=== PATIENT | female | born 1930 | race Caucasian/White ===

== ENCOUNTER 2019-01-02 19:27 | Inpatient (IN) ==
[2019-01-02] MEDS ORDERED: IOPAMIDOL 100 ML BOTTLE IV ONE (19:28)
--- NOTE | 2019-01-02 20:06 | Emergency Department Note ---
Fever HPI - General Chief Complaint: Fever Stated Complaint: FEVER Time Seen by Provider: 01/02/19 19:33 Source: patient Mode of arrival: ambulatory Limitations: no limitations - History of Present Illness HPI Narrative: 88-year-old female presents with weeklong history of generally feeling poor. She does have a nonproductive cough. Had a sore throat for a few days but that has subsided. No ear pain. She is had a fever for at least a few days. She lives at [facility] but did not seek medical attention until today. She presented to minor care and he started to do a work-up that her daughter who is a nurse called and wanted her sent over to the ER for further evaluation due to concern for her age and fever. At that point she was brought over to us in the ER. She did have a chest x-ray that was done in minor care. Chest x-ray is negative for any infiltrates or other findings. Patient is somewhat confused. Family with her states confusion is her baseline however she is slightly more confused than normal possibly. Patient denies any chest pain or abdominal pain. No nausea, vomiting, or diarrhea. She do has had decreased appetite for the last 24 to 48 hours. Her only complaint is cough, fever, and general body aches. Her temp was 102.8 in minor care but they did give her 400 mg of ibuprofen prior to arrival here. - Related Data Home Medications Medication Instructions Recorded Confirmed acetaminophen 500 mg capsule 1,000 mg PO Q6H PRN 10/06/18 01/02/19 aspirin 81 mg tablet,delayed 81 mg PO QDAY 10/06/18 01/02/19 release cholecalciferol (vitamin D3) 2,000 2,000 unit PO QDAY 10/06/18 01/02/19 unit capsule lisinopril 10 1 tab PO QAM tab 10/06/18 01/02/19 mg-hydrochlorothiazide 12.5 mg tablet quetiapine 25 mg tablet 12.5 mg PO QHS tab 10/06/18 01/02/19 risperidone 0.25 mg tablet 0.25 mg PO .COMPLEX 10/06/18 01/02/19 sertraline 50 mg tablet 50 mg PO QDAY 10/06/18 01/02/19 vitamin E 200 unit capsule 400 unit PO QDAY 10/06/18 01/02/19 Allergies Allergy/AdvReac Type Severity Reaction Status Date / Time nitrofurantoin AdvReac Unknown Unknown Verified 01/02/19 19:47 [From Macrobid] Penicillins AdvReac Unknown Unknown Verified 01/02/19 19:29 Tetanus Vaccines and Toxoid AdvReac Unknown Unknown Verified 01/02/19 19:47 Review of Systems All systems ED: reviewed and negative except as stated. Fever PMH - Past Medical History [facility] Narrative: Medical History (Last Reviewed 12/13/18 @ 13:32 by LANDRY Hawley) Urinary incontinence (Chronic) Dementia (Chronic) HTN (hypertension) (Chronic) Memory loss (Chronic) Restless legs (Chronic) Stress reaction with psychomotor agitation (Chronic) Surgical history ED: Reports: non-contributory - Social History smoking status: Never smoker Alcohol use: Reports: None Drug use: Reports: none Physical Exam Limitations: no limitations General appearance: alert, other (Alert and oriented x3 however she is confused at times.) Head: atraumatic, normocephalic, normal inspection Eye: Present: normal appearance. Absent: conjunctival injection ENT: Present: normal exam, normal oropharynx, mucous membranes moist, TM's normal bilaterally, normal external ear exam Neck: Present: normal inspection, trachea midline. Absent: tenderness, lymphadenopathy Chest: Present: symmetric chest wall rise Respiratory: Present: other (Diminished breath sounds in the bases bilaterally otherwise clear throughout). Absent: respiratory distress, rales/crackles, wheezes, accessory muscle use Cardiovascular: Present: regular rate, normal heart sounds Abdominal: Present: soft, normal bowel sounds. Absent: distention, tenderness, guarding, mass Extremities: Present: normal inspection Neurological: Present: alert, oriented X3 (Oriented to person, place and time at this point however she is easily confused and poor short-term memory which is baseline) Psychiatric: Present: normal affect, normal mood Skin: Present: warm, diaphoretic (Slightly diaphoretic on arrival), intact, normal color Course Course Narrative: Chest x-ray is negative and urine is negative. At this point we do not have a source of infection. I have discussed this case with supervising physician Dr. walters. Patient lives at [facility] and there has been several influenza as it sounds like with known influenza exposure. However her symptoms did start about a week ago and so we are most likely outside the window where her rapid influenza with test positive. She does have classic flulike symptoms with body aches and fever and mild nonproductive cough. For this reason and due to the fact that her vital signs are stable, she is afebrile after the ibuprofen and now with a heart rate of 76 and blood pressures have been normal throughout her stay, we have chose to hold off on antibiotics will be further look for source of infection. We are waiting on CT abdomen pelvis and chest results. White count is mildly elevated at 13. Reevaluation of the patient just now, patient has absolutely no complaints. Her body aches are gone after the ibuprofen. States she is feeling well and would like to go home. Discussed with patient we are waiting for CT results. At 2230, Dr. walters assumes care due to shift change. We are still awaiting CT results from [facility]. Patient's vital signs remained stable and she is resting comfortably. Vital Signs Temperature 100.8 F H 01/02/19 19:27 Pulse Rate 88 01/02/19 19:27 Respiratory Rate 20 01/02/19 19:27 Blood Pressure 85/62 01/02/19 19:27 Pulse Oximetry (%) 96 01/02/19 19:27 Temperature 97.8 F 01/03/19 08:01 Pulse Rate 80 01/03/19 09:46 Respiratory Rate 26 H 01/03/19 09:46 Blood Pressure 111/59 01/03/19 09:46 Pulse Oximetry (%) 100 01/03/19 09:46 Fever - Lab Data Result diagrams: 01/03/19 04:10 01/03/19 04:10 Lab Results 01/02/19 01/02/19 01/02/19 Range/Units 19:47 19:47 19:48 WBC 13.2 H (4.5-11.0) K/mcL RBC 3.82 L (4.00-5.20) M/mcL Hgb 11.5 L (12.0-15.0) g/dL Hct 34.3 L (36.0-48.0) % MCV 89.6 (80.0-100.0) fL MCH 30.1 (26.0-34.0) pg MCHC 33.6 (31.0-36.0) g/dL RDW 12.8 (11.5-14.5) % Plt Count 305 (140-440) K/mcL MPV 8.0 (7.4-10.4) fL Gran % 82.4 H (38.0-78.0) % Lymph % (Auto) 9.9 L (15.5-49.0) % [place] % (Auto) 6.9 (1.0-12.0) % Eos % (Auto) 0.2 (0.0-7.0) % Baso % (Auto) 0.6 (0.0-2.0) % Gran # 10.8 H (1.8-8.0) K/mcL Lymph # (Auto) 1.3 L (1.5-4.8) K/mcL [place] # (Auto) 0.9 (0.1-0.9) K/mcL Eos # (Auto) 0 (0.0-0.7) K/mcL Baso # (Auto) 0.1 (0.0-0.3) K/mcL VBG Lactic Acid 1.1 (0.5-2.0) mmol/L Sodium 135 (133-145) mmol/L Potassium 3.9 (3.3-5.1) mmol/L Chloride 100 (96-108) mmol/L Carbon Dioxide 23 (22-30) mmol/L Anion Gap 12.0 (8-16) BUN 20 (8-23) mg/dl Creatinine 1.0 (0.6-1.1) mg/dl GFR Calculation 51 Glucose 123 H (70-105) mg/dL Calcium 9.1 (8.6-10.4) mg/dl Total Bilirubin 0.5 (0.0-1.0) mg/dL AST 30 (0-37) U/l ALT 16 (0-40) U/l Alkaline Phosphatase 53 (39-117) U/L Total Protein 7.4 (5.9-8.4) gm/dL Albumin 3.5 (3.2-5.2) gm/dL Globulin 3.9 H (2.2-3.7) gm/dL Albumin/Globulin Ratio 0.9 L (1.0-2.3) Urine Color Urine Appearance Urine pH (5.0-9.0) Ur Specific [place] (1.000-1.035) Urine Protein (NEG) mg/dL Urine Glucose (UA) (NEG) mg/dL Urine Ketones (NEG) mg/dL Urine Occult Blood (<0.03) mg/dL Urine Nitrate (NEG) Urine Bilirubin (NEG) mg/dL Urine Urobilinogen (NEG) mg/dL Ur Leukocyte Esterase (NEG) /uL Urine RBC (0-1) /hpf Urine WBC (0-4) /hpf Ur Squamous Epith Cells (0-4) /hpf Urine Bacteria (0) /hpf Urine Mucus (0) /hpf Ur Culture Indicated? 01/02/19 Range/Units 20:24 WBC (4.5-11.0) K/mcL RBC (4.00-5.20) M/mcL Hgb (12.0-15.0) g/dL Hct (36.0-48.0) % MCV (80.0-100.0) fL MCH (26.0-34.0) pg MCHC (31.0-36.0) g/dL RDW (11.5-14.5) % Plt Count (140-440) K/mcL MPV (7.4-10.4) fL Gran % (38.0-78.0) % Lymph % (Auto) (15.5-49.0) % [place] % (Auto) (1.0-12.0) % Eos % (Auto) (0.0-7.0) % Baso % (Auto) (0.0-2.0) % Gran # (1.8-8.0) K/mcL Lymph # (Auto) (1.5-4.8) K/mcL [place] # (Auto) (0.1-0.9) K/mcL Eos # (Auto) (0.0-0.7) K/mcL Baso # (Auto) (0.0-0.3) K/mcL VBG Lactic Acid (0.5-2.0) mmol/L Sodium (133-145) mmol/L Potassium (3.3-5.1) mmol/L Chloride (96-108) mmol/L Carbon Dioxide (22-30) mmol/L Anion Gap (8-16) BUN (8-23) mg/dl Creatinine (0.6-1.1) mg/dl GFR Calculation Glucose (70-105) mg/dL Calcium (8.6-10.4) mg/dl Total Bilirubin (0.0-1.0) mg/dL AST (0-37) U/l ALT (0-40) U/l Alkaline Phosphatase (39-117) U/L Total Protein (5.9-8.4) gm/dL Albumin (3.2-5.2) gm/dL Globulin (2.2-3.7) gm/dL Albumin/Globulin Ratio (1.0-2.3) Urine Color Yellow Urine Appearance Clear Urine pH 5.0 (5.0-9.0) Ur Specific [place] 1.024 (1.000-1.035) Urine Protein Neg (NEG) mg/dL Urine Glucose (UA) Negative (NEG) mg/dL Urine Ketones Neg (NEG) mg/dL Urine Occult Blood 0.03 A (<0.03) mg/dL Urine Nitrate Neg (NEG) Urine Bilirubin Neg (NEG) mg/dL Urine Urobilinogen Neg (NEG) mg/dL Ur Leukocyte Esterase Neg (NEG) /uL Urine RBC 1 (0-1) /hpf Urine WBC 1 (0-4) /hpf Ur Squamous Epith Cells < 1 (0-4) /hpf Urine Bacteria 0 (0) /hpf Urine Mucus Mod (0) /hpf Ur Culture Indicated? No Disposition Pt seen by WOOL CLEANER/PA only: No Clinical Impression: Community acquired pneumonia Disposition: Xfer As Inpt ([facility]) Condition: Fair
[2019-01-02 20:33] LABS: Basophils # (Auto) 0.1 K/mcL (0.0-0.3); Basophils % (Auto) 0.6 % (0.0-2.0); Eosinophils # (Auto) 0 K/mcL (0.0-0.7); Eosinophils % (Auto) 0.2 % (0.0-7.0); Granulocytes % (Auto) 82.4 % (38.0-78.0); Hematocrit 34.3 % (36.0-48.0); Hemoglobin 11.5 g/dL (12.0-15.0); Lymphocytes # (Auto) 1.3 K/mcL (1.5-4.8); Lymphocytes % (Auto) 9.9 % (15.5-49.0); Mean Cell Volume 89.6 fL (80.0-100.0); Mean Corpuscular HGB Conc 33.6 g/dL (31.0-36.0); Monocytes # (Auto) 0.9 K/mcL (0.1-0.9); Monocytes % (Auto) 6.9 % (1.0-12.0); Platelet Count 305 K/mcL (140-440); RBC 3.82 M/mcL (4.00-5.20); Red Cell Distribution Width 12.8 % (11.5-14.5); WBC 13.2 K/mcL (4.5-11.0)
[2019-01-02 20:55] LABS: ALT/SGPT 16 U/l (0-40); AST/SGOT 30 U/l (0-37); Albumin 3.5 gm/dL (3.2-5.2); Albumin/Globulin Ratio 0.9 (1.0-2.3); Alkaline Phosphatase 53 U/L (39-117); Bilirubin,Total 0.5 mg/dL (0.0-1.0); Blood Urea Nitrogen 20 mg/dl (8-23); Calcium 9.1 mg/dl (8.6-10.4); Carbon Dioxide 23 mmol/L (22-30); Chloride 100 mmol/L (96-108); Globulin 3.9 gm/dL (2.2-3.7); Glomerular Filtration Rate 51; Glucose 123 mg/dL (70-105)
[2019-01-02 21:16] LABS: Appearance,Urine CLEAR; Bacteria,Urine 0 /hpf (0); Bilirubin,Urine NEG (NEG); Color,Urine YELLOW; Culture Indicated,Urine NO; Glucose,Urine (UA) NEGATIVE (NEG); Ketones,Urine NEG (NEG); Leukocyte Esterase,Urine NEG /uL (NEG); Mucus,Urine MOD /hpf (0); Nitrate,Urine NEG (NEG); Protein,Urine NEG (NEG); Specific Gravity,Urine 1.024 (1.000-1.035); Urine Blood 0.03 mg/dL (<0.03); Urine RBC 1 /hpf (0-1); Urine Squamous Epithelial Cell < 1 /hpf (0-4); Urine WBC 1 /hpf (0-4); Urobilinogen,Urine NEG (NEG)
[2019-01-02] MEDS ORDERED: 0.9 % SODIUM CHLORIDE 1,000 ML IV ONE (22:25)
[2019-01-02] MEDS ORDERED: LEVOFLOXACIN 750 MG/150 ML BAG IV ONE (23:17)
--- NOTE | 2019-01-02 23:34 | Internal Med History&Physical ---
Medical - H&P: [facility] Patient information: Note initiated : 01/02/19 at 11:33 pm Service Date, if different from initiated Date: [] Patient: Juliann Garza a 88 y/o F admitted on for Fever. Chief Complaint: [] Chief complaint: Shortness of breath, fever weakness and cough History of present illness: Ms. Garza is a 88 year old F resident of [facility] who presents with 2 weeks onset of progressive weakness, body ache, fatigue, intermittent fever and progressive dyspnea. Symptoms associated with yellow-green productive sputum. She denies sick contacts. However her functionality has remarkably gone down and has been unable to perform usual ADLs. Initial work-up in the ER was consistent with pneumonia on chest imaging/white count and PSI score over 100, white count 13.2. Patient was tachypneic, tachycardic with blood pressures in 90s. She received crystalloid/antibiotic coverage/cultures. Subsequently patient was started on pressors in light of sepsis induced hypotension and organ dysfunction. Hospitalist service was consulted At the time of evaluation patient is short of breath slightly anxious but was able to answer most the question. She denies chest pain, diarrhea dysuria headache or photophobia. She further denies joint pain or rash. She endorses to loss of appetite. Son Chandrakant present in room. Most of the history was obtained from son. Patient appears fairly confused and did not remember if she had a family member in town however's per son there are 6 brothers and sisters who periodically take care of her. Patient's daughter Linda is the POA who is also a nurse ROS A 10 point review system was performed and is negative except for one discussed above Medical - H&P: PMH Medical history: Urinary incontinence (Chronic) Dementia (Chronic) HTN (hypertension) (Chronic) Memory loss (Chronic) Restless legs (Chronic) Stress reaction with psychomotor agitation (Chronic) Social History housing: assisted living facility smoking status: Never smoker Lives at [facility] No history of alcoholism Medical - H&P: Meds Home Medications Medication Instructions Recorded Confirmed Type acetaminophen 500 mg capsule 1,000 mg PO Q6H PRN 10/06/18 01/02/19 History aspirin 81 mg tablet,delayed 81 mg PO QDAY 10/06/18 01/02/19 History release cholecalciferol (vitamin D3) 2,000 2,000 unit PO QDAY 10/06/18 01/02/19 History unit capsule lisinopril 10 1 tab PO QAM tab 10/06/18 01/02/19 History mg-hydrochlorothiazide 12.5 mg tablet quetiapine 25 mg tablet 12.5 mg PO QHS tab 10/06/18 01/02/19 History risperidone 0.25 mg tablet 0.25 mg PO .COMPLEX 10/06/18 01/02/19 History sertraline 50 mg tablet 50 mg PO QDAY 10/06/18 01/02/19 History vitamin E 200 unit capsule 400 unit PO QDAY 10/06/18 01/02/19 History Allergies Allergy/AdvReac Type Severity Reaction Status Date / Time nitrofurantoin AdvReac Unknown Unknown Verified 01/02/19 19:47 [From Macrobid] Penicillins AdvReac Unknown Unknown Verified 01/02/19 19:29 Tetanus Vaccines and Toxoid AdvReac Unknown Unknown Verified 01/02/19 19:47 Medical - H&P: Exam - Constitutional Vitals: Temp Pulse Resp BP Pulse Ox 98.5 F 63 20 94/55 96 01/02/19 22:14 01/02/19 23:31 01/02/19 23:31 01/02/19 23:31 01/02/19 23:31 General appearance: no acute distress Exam: Alert but disoriented to place Head normocephalic Oral cavity dry No ear nose discharge neck no lymphadenopathy S1-S2 regular rhythm, ESM grade 1 Diminished breath sounds bases, no crackles Abdomen soft nontender nondistended Lower extremity no sinus clubbing no joint swelling Skin no suspicious lesion Psych anxious alert but disoriented Neuro moving all 4 extremities Medical - H&P: Reslt - Labs CBC & Chem 7: 01/03/19 04:10 01/03/19 04:10 Labs: Short CBC 01/02/19 Range/Units 19:48 WBC 13.2 H (4.5-11.0) K/mcL Hgb 11.5 L (12.0-15.0) g/dL Hct 34.3 L (36.0-48.0) % Plt Count 305 (140-440) K/mcL BMP 01/02/19 19:47 Sodium 135 Potassium 3.9 Chloride 100 Carbon Dioxide 23 BUN 20 Creatinine 1.0 Glucose 123 H Calcium 9.1 Liver Function 11/12/19 Range/Units 19:47 Total Bilirubin 0.5 (0.0-1.0) mg/dL AST 30 (0-37) U/l ALT 16 (0-40) U/l Alkaline Phosphatase 53 (39-117) U/L Albumin 3.5 (3.2-5.2) gm/dL Urine 01/02/19 Range/Units 20:24 Urine Color Yellow Urine Appearance Clear Urine pH 5.0 (5.0-9.0) Ur Specific [place] 1.024 (1.000-1.035) Urine Protein Neg (NEG) mg/dL Urine Glucose (UA) Negative (NEG) mg/dL Medical - H&P: A/P (1) Pneumonia Current visit: Yes Status: Acute * Right lower lobe pneumonia-continue antibiotic coverage. Abx /blood cultures/sputum cultures/bronchodilators/supplemental oxygen * Severe sepsis and hypotension continue crystalloid/vasopressors as indicated. Maintain map at goal. Evidence of endorgan dysfunction noted with increasing confusion * Acute encephalopathy secondary to sepsis endorgan dysfunction * History of dementia with agitation continue quetiapine/risperidone/sertraline * History of hypertension hold antihypertensives in light of shock * Full code * Prophylaxis heparin Plan * Inpatient admission in light of PSI score 100 advanced age * Antibiotic coverage bronchodilators * Continue telemetry monitoring * Crystalloids and vasopressors as indicated to maintain map at goal * Monitor for agitation/delirium * PT OT nutrition support * Case management coordinate safe discharge plan Time spent on history for physical in excess of 65 minutes. Additional 35 minutes critical time spent on septic shock management including vasopressors and crystalloids and close monitoring of hemodynamics
[2019-01-03] MEDS ORDERED: 0.9 % SODIUM CHLORIDE 1,000 ML IV ONE (00:37)
[2019-01-03] MEDS ORDERED: CEFEPIME 2 GM in DEXTROSE 5% IN WATER 50 ML IV SCH (01:17)
[2019-01-03] MEDS ORDERED: MELATONIN 3 MG TABLET PO PRN (01:17)
[2019-01-03] MEDS ORDERED: POTASSIUM CHLORIDE 20 MEQ PACKET PO PRN (01:17)
[2019-01-03] MEDS ORDERED: ACETAMINOPHEN 650 MG/65 ML BOTTLE IV PRN (01:17)
[2019-01-03] MEDS ORDERED: ONDANSETRON 4 MG/2 ML VIAL IV PRN (01:17)
[2019-01-03] MEDS ORDERED: MAGNESIUM HYDROXIDE 30 ML ORAL.SUSP PO PRN (01:17)
[2019-01-03] MEDS ORDERED: ACETAMINOPHEN 325 MG TABLET PO PRN (01:17)
[2019-01-03] MEDS ORDERED: MAGNESIUM SULFATE 2 GM/50 ML BAG IV PRN (01:17)
[2019-01-03] MEDS ORDERED: guaiFENesin/CODEINE 10 ML UDC PO PRN (01:17)
[2019-01-03] MEDS: LEVOFLOXACIN 750 MG/150 ML BAG IV SCH ×2 (01:19→16:43)
[2019-01-03] MEDS: METOPROLOL TARTRATE 5 MG/5 ML VIAL IV SCH ×2 (01:21→01:27)
[2019-01-03] MEDS ORDERED: CEFEPIME 1 GM VIAL ONE (01:34)
[2019-01-03] MEDS: 0.9 % SODIUM CHLORIDE 1,000 ML IV SCH ×2 (03:38→23:40)
[2019-01-03] MEDS ORDERED: IPRATROPIUM/ALBUTEROL 3 ML AMPUL.NEB NEB ONE (04:07)
[2019-01-03] MEDS: IPRATROPIUM/ALBUTEROL 3 ML AMPUL.NEB NEB SCH ×4 (04:11→18:15)
[2019-01-03] MEDS ORDERED: NOREPINEPHRINE BITARTRATE 4 MG/4 ML VIAL IV ONE (04:23)
[2019-01-03] MEDS: NOREPINEPHRINE BITARTRATE 16 MG in 0.9 % SODIUM CHLORIDE 234 ML IV SCH (05:05)
[2019-01-03] MEDS: 0.9 % SODIUM CHLORIDE 10 ML SYRINGE IV SCH ×3 (05:31→20:24)
[2019-01-03 06:29] LABS: Hematocrit 30.7 % (36.0-48.0); Hemoglobin 10.4 g/dL (12.0-15.0); Mean Platelet Volume 7.8 fL (7.4-10.4); Platelet Count 246 K/mcL (140-440); RBC 3.38 M/mcL (4.00-5.20); Red Cell Distribution Width 12.6 % (11.5-14.5); WBC 10.2 K/mcL (4.5-11.0)
[2019-01-03 06:45] LABS: ALT/SGPT 12 U/l (0-40); AST/SGOT 22 U/l (0-37); Albumin 2.8 gm/dL (3.2-5.2); Albumin/Globulin Ratio 0.9 (1.0-2.3); Alkaline Phosphatase 56 U/L (39-117); Bilirubin,Direct < 0.2 mg/dL (0.0-0.3); Bilirubin,Total 0.5 mg/dL (0.0-1.0); Blood Urea Nitrogen 16 mg/dl (8-23); Calcium 7.9 mg/dl (8.6-10.4); Carbon Dioxide 23 mmol/L (22-30); Chloride 107 mmol/L (96-108); Globulin 3.2 gm/dL (2.2-3.7); Glomerular Filtration Rate 58; Glucose 99 mg/dL (70-105); Lactate Dehydrogenase 217 U/L (94-250); Phosphorous 2.8 mg/dL (2.7-4.5); Triglycerides 61 mg/dl (<150)
[2019-01-03] MEDS: BUDESONIDE 0.5 MG/2 ML AMPUL.NEB NEB SCH ×2 (06:59→19:17)
--- NOTE | 2019-01-03 07:14 | Emergency Department Note ---
General Adult HPI - General Chief complaint: Fever Stated complaint: FEVER Time Seen by Provider: 01/02/19 19:33 Source: patient Mode of arrival: ambulatory Limitations: no limitations - Related Data Home Medications Medication Instructions Recorded Confirmed acetaminophen 500 mg capsule 1,000 mg PO Q6H PRN 10/06/18 01/02/19 aspirin 81 mg tablet,delayed 81 mg PO QDAY 10/06/18 01/02/19 release cholecalciferol (vitamin D3) 2,000 2,000 unit PO QDAY 10/06/18 01/02/19 unit capsule lisinopril 10 1 tab PO QAM tab 10/06/18 01/02/19 mg-hydrochlorothiazide 12.5 mg tablet quetiapine 25 mg tablet 12.5 mg PO QHS tab 10/06/18 01/02/19 risperidone 0.25 mg tablet 0.25 mg PO .COMPLEX 10/06/18 01/02/19 sertraline 50 mg tablet 50 mg PO QDAY 10/06/18 01/02/19 vitamin E 200 unit capsule 400 unit PO QDAY 10/06/18 01/02/19 Allergies Allergy/AdvReac Type Severity Reaction Status Date / Time nitrofurantoin AdvReac Unknown Unknown Verified 01/02/19 19:47 [From Macrobid] Penicillins AdvReac Unknown Unknown Verified 01/02/19 19:29 Tetanus Vaccines and Toxoid AdvReac Unknown Unknown Verified 01/02/19 19:47 Past Medical History - Past Medical History Surgical history ED: Reports: non-contributory - Social History smoking status: Unknown if ever smoked Alcohol use: Reports: None Drug use: Reports: none Physical Exam Limitations: no limitations General appearance: alert, other (Alert and oriented x3 however she is confused at times.) Course Vital Signs Temperature 100.8 F H 01/02/19 19:27 Pulse Rate 88 01/02/19 19:27 Respiratory Rate 20 01/02/19 19:27 Blood Pressure 85/62 01/02/19 19:27 Pulse Oximetry (%) 96 01/02/19 19:27 Temperature 98.9 F 01/03/19 04:09 Pulse Rate 68 01/03/19 07:01 Respiratory Rate 25 H 01/03/19 07:01 Blood Pressure 99/78 01/03/19 07:01 Pulse Oximetry (%) 96 01/03/19 07:01 Medical Decision Making - MDM Narrative Medical decision making narrative: Chest CT scan did show a consolidated pneumonia in the right lower lobe. I discussed case with Dr. Regan and she was admitted to the hospital. - Lab Data Lab results reviewed: Yes I reviewed the patient's lab results. Result diagrams: 01/03/19 04:10 01/03/19 04:10 Lab Results 01/02/19 01/02/19 01/02/19 Range/Units 19:47 19:47 19:48 WBC 13.2 H (4.5-11.0) K/mcL RBC 3.82 L (4.00-5.20) M/mcL Hgb 11.5 L (12.0-15.0) g/dL Hct 34.3 L (36.0-48.0) % MCV 89.6 (80.0-100.0) fL MCH 30.1 (26.0-34.0) pg MCHC 33.6 (31.0-36.0) g/dL RDW 12.8 (11.5-14.5) % Plt Count 305 (140-440) K/mcL MPV 8.0 (7.4-10.4) fL Gran % 82.4 H (38.0-78.0) % Lymph % (Auto) 9.9 L (15.5-49.0) % [place] % (Auto) 6.9 (1.0-12.0) % Eos % (Auto) 0.2 (0.0-7.0) % Baso % (Auto) 0.6 (0.0-2.0) % Gran # 10.8 H (1.8-8.0) K/mcL Lymph # (Auto) 1.3 L (1.5-4.8) K/mcL [place] # (Auto) 0.9 (0.1-0.9) K/mcL Eos # (Auto) 0 (0.0-0.7) K/mcL Baso # (Auto) 0.1 (0.0-0.3) K/mcL VBG Lactic Acid 1.1 (0.5-2.0) mmol/L Sodium 135 (133-145) mmol/L Potassium 3.9 (3.3-5.1) mmol/L Chloride 100 (96-108) mmol/L Carbon Dioxide 23 (22-30) mmol/L Anion Gap 12.0 (8-16) BUN 20 (8-23) mg/dl Creatinine 1.0 (0.6-1.1) mg/dl GFR Calculation 51 Glucose 123 H (70-105) mg/dL Calcium 9.1 (8.6-10.4) mg/dl Total Bilirubin 0.5 (0.0-1.0) mg/dL AST 30 (0-37) U/l ALT 16 (0-40) U/l Alkaline Phosphatase 53 (39-117) U/L Total Protein 7.4 (5.9-8.4) gm/dL Albumin 3.5 (3.2-5.2) gm/dL Globulin 3.9 H (2.2-3.7) gm/dL Albumin/Globulin Ratio 0.9 L (1.0-2.3) Urine Color Urine Appearance Urine pH (5.0-9.0) Ur Specific [place] (1.000-1.035) Urine Protein (NEG) mg/dL Urine Glucose (UA) (NEG) mg/dL Urine Ketones (NEG) mg/dL Urine Occult Blood (<0.03) mg/dL Urine Nitrate (NEG) Urine Bilirubin (NEG) mg/dL Urine Urobilinogen (NEG) mg/dL Ur Leukocyte Esterase (NEG) /uL Urine RBC (0-1) /hpf Urine WBC (0-4) /hpf Ur Squamous Epith Cells (0-4) /hpf Urine Bacteria (0) /hpf Urine Mucus (0) /hpf Ur Culture Indicated? 01/02/19 Range/Units 20:24 WBC (4.5-11.0) K/mcL RBC (4.00-5.20) M/mcL Hgb (12.0-15.0) g/dL Hct (36.0-48.0) % MCV (80.0-100.0) fL MCH (26.0-34.0) pg MCHC (31.0-36.0) g/dL RDW (11.5-14.5) % Plt Count (140-440) K/mcL MPV (7.4-10.4) fL Gran % (38.0-78.0) % Lymph % (Auto) (15.5-49.0) % [place] % (Auto) (1.0-12.0) % Eos % (Auto) (0.0-7.0) % Baso % (Auto) (0.0-2.0) % Gran # (1.8-8.0) K/mcL Lymph # (Auto) (1.5-4.8) K/mcL [place] # (Auto) (0.1-0.9) K/mcL Eos # (Auto) (0.0-0.7) K/mcL Baso # (Auto) (0.0-0.3) K/mcL VBG Lactic Acid (0.5-2.0) mmol/L Sodium (133-145) mmol/L Potassium (3.3-5.1) mmol/L Chloride (96-108) mmol/L Carbon Dioxide (22-30) mmol/L Anion Gap (8-16) BUN (8-23) mg/dl Creatinine (0.6-1.1) mg/dl GFR Calculation Glucose (70-105) mg/dL Calcium (8.6-10.4) mg/dl Total Bilirubin (0.0-1.0) mg/dL AST (0-37) U/l ALT (0-40) U/l Alkaline Phosphatase (39-117) U/L Total Protein (5.9-8.4) gm/dL Albumin (3.2-5.2) gm/dL Globulin (2.2-3.7) gm/dL Albumin/Globulin Ratio (1.0-2.3) Urine Color Yellow Urine Appearance Clear Urine pH 5.0 (5.0-9.0) Ur Specific [place] 1.024 (1.000-1.035) Urine Protein Neg (NEG) mg/dL Urine Glucose (UA) Negative (NEG) mg/dL Urine Ketones Neg (NEG) mg/dL Urine Occult Blood 0.03 A (<0.03) mg/dL Urine Nitrate Neg (NEG) Urine Bilirubin Neg (NEG) mg/dL Urine Urobilinogen Neg (NEG) mg/dL Ur Leukocyte Esterase Neg (NEG) /uL Urine RBC 1 (0-1) /hpf Urine WBC 1 (0-4) /hpf Ur Squamous Epith Cells < 1 (0-4) /hpf Urine Bacteria 0 (0) /hpf Urine Mucus Mod (0) /hpf Ur Culture Indicated? No - Radiology Data Radiology results reviewed: Yes I reviewed the patient's radiology results. Disposition Pt seen by DESTINATION COORDINATOR/PA only: No Clinical Impression: Community acquired pneumonia Disposition: Xfer As Inpt ([facility]) Condition: Undetermined
[2019-01-03 08:14] LABS: Lymphocytes % 14 % (15-49); Monocytes % (Manual) 9 % (1-12); Platelet Estimate NORMAL (NORMAL); RBC Morphology NORMAL (NORMAL); Segmented Neutrophils % 77 % (38-78)
--- NOTE | 2019-01-03 08:36 | Cat Scan Report ---
CLINICAL INFORMATION: Fever unknown origin and weakness COMPARISON: None. TECHNIQUE: Enteric contrast was utilized. 80 cc of Isovue-370 were injected intravenously, and 50 seconds later 2.5 mm helical slices were obtained from the lung apices through the subtrochanteric regions of the femurs. Following reconstruction, 2.5 mm sagittal, coronal and axial reformatted images were processed and reviewed at multiple windows and levels. 7 mm MIP reconstructions were obtained through the lungs to optimize nodule detection.The exam was performed using radiation dose optimization techniques including, but not limited to, automated exposure control, adjustment of the mA and/or kV according to patient size and use of iterative reconstruction technique. FINDINGS: Pulmonary parenchymal windows show a moderate consolidated infiltrate in the posterior right lower lobe with a small right pleural effusion compatible with pneumonia. There are four to five pleural-based nodules in the posterior lateral right lower lobe ranging up to 5 mm patible with benign subpulmonic lymph nodes. A 5 mm subpulmonic lymph node in the left mid lung (image 85). There is no evidence of pulmonary malignancy. Mediastinal windows show the heart is normal in size and configuration is normal. Scattered atherosclerotic plaque in the coronary arteries. The thoracic aorta and pulmonary arteries are normal in contour and caliber and are well opacified - no evidence of pulmonary embolus. There is no adenopathy in the mediastinal hilar or axillary region. Esophagus is grossly normal. The thyroid is unremarkable. Abdominal images show the gallbladder and bile ducts, liver, both kidneys, adrenal glands, spleen and pancreas are normal in size, configuration and attenuation without focal lesion. The abdominal aorta is normal diameter - 19 mm with scattered atherosclerotic plaque. 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 The SMA, ELYSSA, both renal and iliac arteries contain plaque, but no stenoses. Images should the pelvis show urinary bladder to be unremarkable. Hysterectomy/oophorectomy changes noted. There are few sigmoid diverticuli, but no evidence of diverticulitis. The remaining colon is unremarkable. Appendix is not identified and is likely surgically absent. The small bowel and stomach are grossly normal. Bone windows show no osseous abnormality IMPRESSION: 1. Moderate solitary right lower lobe infiltrate likely pneumonia. Scattered benign subpulmonic lymph nodes in the right lower lobe and left upper lobe. No evidence of pulmonary malignancy. 2. 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 The remaining aortic branches and aorta are normal Interpreted and Authenticated by: Shoaib Garcia 01/03/19
[2019-01-03] MEDS: HEPARIN 5,000 UNIT/ML VIAL SQ SCH ×2 (08:52→20:23)
[2019-01-03] MEDS: DOCUSATE SODIUM 100 MG CAPSULE PO SCH ×2 (08:52→20:23)
[2019-01-03] MEDS: MULTIVIT,THER IRON,CA,FA & MIN 1 TABLET PO SCH (08:52)
[2019-01-03] MEDS: CEFEPIME 2 GM VIAL IV SCH ×2 (10:26→20:23)
--- NOTE | 2019-01-03 16:05 | Internal Med Progress Note ---
Medical - PN: Subj Patient information: Note initiated : 01/03/19 at 4:01 pm Service Date, if different from initiated Date: [] Patient: Juliann Garza a 88 y/o F admitted on 01/03/19 for Fever. Chief Complaint: [] Interval history: Ms. Garza is a 88 year old F resident of [facility] who presents with 2 w eeks onset of progressive weakness, body ache, fatigue, intermittent fever and progressive dyspnea. Symptoms associated with yellow-green productive sputum. She denies sick contacts. However her functionality has remarkably gone down and has been unable to perform usual ADLs. Initial work-up in the ER was consistent with pneumonia on chest imaging/white count and PSI score over 100, white count 13.2. Patient was tachypneic, tachycardic with blood pressures in 90s. She received crystalloid/antibiotic coverage/cultures. Subsequently patient was started on pressors in light of sepsis induced hypotension and organ dysfunction. Hospitalist service was consulted At the time of evaluation patient is short of breath slightly anxious but was able to answer most the question. She denies chest pain, diarrhea dysuria headache or photophobia. She further denies joint pain or rash. She endorses to loss of appetite. Son Chandrakant present in room. Most of the history was obtained from son. Patient appears fairly confused and did not remember if she had a family member in town however's per son there are 6 brothers and sisters who periodically take care of her. Patient's daughter Linda is the POA who is also a nurse 01/03-patient doing well currently on levo fed/crystalloids and antibiotic coverage. Starting to feel better and more lucid alert and respond to commands. Met son and discussed goals of care/ongoing treatment. Attempted to reach POA daughter Linda but unable to put on phone. T-max 101.3. White count downtrending to 10,000. Wean pressors as indicated. - Constitutional Vitals: Vital Signs Temp Pulse Resp BP Pulse Ox 97.8 F 90 27 H 119/80 98 01/03/19 08:01 01/03/19 15:01 01/03/19 15:01 01/03/19 15:01 01/03/19 15:01 Period Temp Pulse Resp BP Sys/Flynn Pulse Ox Last 24 Hr 97.2 F-101.3 F 49-96 10-32 81-151/41-113 81-100 Intake and Output 01/03/19 01/03/19 01/03/19 05:59 13:59 21:59 Intake Total 1535 1205 Output Total 1 600 150 Balance 1534 605 -150 Weight 158 lb 3.2 oz Intake & Output: Intake & Output 01/03/19 01/03/19 01/03/19 05:59 13:59 21:59 Intake Total 1535 1205 Output Total 1 600 150 Balance 1534 605 -150 Weight 158 lb 3.2 oz Intake: IV 1535 5 Sodium Chloride 0.9% 1,000 ml @ 1383 Wide Open IV [facility] Rx#: [id number] Levophed 16 mg In Sodium 2 5 Chloride 0.9% 234 ml @ 10 MCG/ MIN 9.375 mls/hr IV Q24H [facility] Rx #:[id number] Oral 1200 Output: Void Amount 600 150 # of times incontinent of urine 1 Other: Meal Breakfast Percent of Meal Consumed 100% Exam: Intimately confused Improved work of breathing No lymphedema Nondistended abdomen No anxiety Medical - PN: Obj Da - Labs CBC & Chem 7: 01/03/19 04:10 01/03/19 04:10 Labs: Abnormal Lab Results 01/03/19 01/03/19 01/02/19 04:10 04:10 20:24 WBC RBC 3.38 L Hgb 10.4 L Hct 30.7 L Gran % Lymph % (Auto) Gran # Lymph # (Auto) Lymphocytes % 14 L Glucose Calcium 7.9 L Albumin 2.8 L Globulin Albumin/Globulin Ratio 0.9 L Urine Occult Blood 0.03 A 01/02/19 01/02/19 19:48 19:47 WBC 13.2 H RBC 3.82 L Hgb 11.5 L Hct 34.3 L Gran % 82.4 H Lymph % (Auto) 9.9 L Gran # 10.8 H Lymph # (Auto) 1.3 L Lymphocytes % Glucose 123 H Calcium Albumin Globulin 3.9 H Albumin/Globulin Ratio 0.9 L Urine Occult Blood Meds: Medications Acetaminophen (Tylenol) 650 mg PO Q4-6HP PRN; Protocol PRN Reason: Per Pain Protocol/Fever > 101 Albuterol/Ipratropium (Duoneb) 3 ml NEB Q6HRT [facility] Last Admin: 01/03/19 13:48 Dose: 3 ml Documented by: Budesonide (Pulmicort) 0.5 mg NEB Q12 [facility] Last Admin: 01/03/19 06:59 Dose: 0.5 mg Documented by: Cefepime HCl (Maxipime) 2 gm IV Q12H [facility] Last Admin: 01/03/19 10:26 Dose: 2 gm Documented by: Docusate Sodium (Colace) 100 mg PO BID [facility] Last Admin: 01/03/19 08:52 Dose: 100 mg Documented by: Guaifenesin/Codeine Phosphate (Robitussin Ac) 10 ml PO Q4HP PRN PRN Reason: Cough Heparin Sodium (Porcine) (Heparin) 5,000 unit SQ Q12 [facility] Last Admin: 01/03/19 08:52 Dose: 5,000 unit Documented by: Sodium Chloride (Sodium Chloride 0.9%) 1,000 mls @ 50 mls/hr IV .Q20H [facility] Stop: 01/05/19 13:16 Last Admin: 01/03/19 03:38 Dose: 50 mls/hr Documented by: Acetaminophen (Ofirmev) 650 mg in 65 mls @ 130 mls/hr IV Q6HP PRN; Protocol PRN Reason: Per Pain Protocol/Fever > 101 Magnesium Sulfate (Magnesium Sulfate) 2 gm in 50 mls @ 50 mls/hr IV UD PRN PRN Reason: MG = or < 1.7 Levofloxacin (Levaquin) 750 mg in 150 mls @ 100 mls/hr IV Q24H [facility]; Protocol Last Admin: 01/03/19 01:19 Dose: Not Given Documented by: Norepinephrine Bitartrate 16 (mg/ Sodium Chloride) 250 mls @ 9.375 mls/hr IV Q24H [facility]; Protocol Last Titration: 01/03/19 08:30 Dose: 0 mcg/min, 0 mls/hr Documented by: Iron Carb/Multivit/Roosevelt/Folic Acid (Multivitamin W/Minerals) 1 tab PO DAILY [facility] Last Admin: 01/03/19 08:52 Dose: 1 tab Documented by: Magnesium Hydroxide (Milk Of Magnesia) 30 ml PO HSP PRN PRN Reason: Constipation Melatonin (Melatonin 3mg Tablet) 3 mg PO HSP PRN PRN Reason: Insomnia Ondansetron HCl (Zofran) 4 mg IV Q4-6HP PRN; Protocol PRN Reason: Nausea And Vomiting Potassium Chloride (Klor-Con) 40 meq PO DAILYP PRN PRN Reason: K+ < 3.5 Senna/Docusate Sodium (Senna Plus Tablet) 1 tab PO HS [facility] Sodium Chloride (Saline Flush) 10 ml IV Q8 [facility] Last Admin: 01/03/19 05:31 Dose: Not Given Documented by: Medical - PN: A/P - Time Spent With Patient Total time spent is greater than 50% in coordination of care (as documented) at patient's floor/unit and/or counseling patient: (1) Pneumonia Status: Acute Assessment and plan: * Right lower lobe pneumonia-continue Cefepime/levofloxacin. Await blood and sputum cultures, continue bronchodilators/supplemental oxygen * Septic shock clinically improving with crystalloids and vasopressors. Wean as tolerated. Map at goal. Improving endorgan dysfunction. Improving urine output. Continue broad-spectrum antibiotics. * Acute encephalopathy secondary to sepsis endorgan dysfunction-clinically improving * History of dementia with agitation continue quetiapine/risperidone/sertraline * History of hypertension antihypertensives on hold in light of shock * Full code * Prophylaxis heparin Plan * Wean pressors as indicated * Crystalloid/antibiotics * Delirium watch/fall risk * PT OT nutrition support * SNF transfer coordination per case management Critical care time 35 minutes Current Visit: Yes Medical - PN: Qual - VTE Deep Vein Thrombosis/Pulmonary Embolism Present on Admission: No
[2019-01-03] MEDS ORDERED: SENNOSIDES/DOCUSATE SODIUM 1 TAB TABLET PO SCH (21:00)
[2019-01-04] MEDS: IPRATROPIUM/ALBUTEROL 3 ML AMPUL.NEB NEB SCH ×2 (01:42→07:23)
[2019-01-04] MEDS: NOREPINEPHRINE BITARTRATE 16 MG in 0.9 % SODIUM CHLORIDE 234 ML IV SCH (01:43)
[2019-01-04] MEDS: 0.9 % SODIUM CHLORIDE 10 ML SYRINGE IV SCH ×4 (05:20→20:15)
[2019-01-04 05:29] LABS: Hematocrit 30.3 % (36.0-48.0); Hemoglobin 10.4 g/dL (12.0-15.0); Mean Cell Volume 92.8 fL (80.0-100.0); Mean Corpuscular HGB Conc 34.3 g/dL (31.0-36.0); Mean Platelet Volume 7.9 fL (7.4-10.4); Platelet Count 272 K/mcL (140-440); RBC 3.27 M/mcL (4.00-5.20); WBC 10.3 K/mcL (4.5-11.0)
[2019-01-04 06:00] LABS: ALT/SGPT 10 U/l (0-40); AST/SGOT 24 U/l (0-37); Albumin 2.9 gm/dL (3.2-5.2); Albumin/Globulin Ratio 0.9 (1.0-2.3); Alkaline Phosphatase 46 U/L (39-117); Bilirubin,Direct < 0.2 mg/dL (0.0-0.3); Bilirubin,Total 0.4 mg/dL (0.0-1.0); Blood Urea Nitrogen 13 mg/dl (8-23); Calcium 8.2 mg/dl (8.6-10.4); Carbon Dioxide 21 mmol/L (22-30); Globulin 3.3 gm/dL (2.2-3.7); Glomerular Filtration Rate 58; Glucose 101 mg/dL (70-105); Lactate Dehydrogenase 178 U/L (94-250); Phosphorous 2.5 mg/dL (2.7-4.5); Triglycerides 67 mg/dl (<150); Uric Acid 3.3 mg/dL (2.5-8.0)
[2019-01-04 06:25] LABS: Chloride 109 mmol/L (96-108)
[2019-01-04] MEDS: BUDESONIDE 0.5 MG/2 ML AMPUL.NEB NEB SCH (07:23)
[2019-01-04 07:41] LABS: Lymphocytes % 16 % (15-49); Monocytes % (Manual) 5 % (1-12); Platelet Estimate NORMAL (NORMAL); RBC Morphology NORMAL (NORMAL); Segmented Neutrophils % 79 % (38-78)
--- NOTE | 2019-01-04 08:11 | XRay Report ---
CLINICAL INFORMATION: Dyspnea COMPARISON: 01/02/2019 TECHNIQUE: PA and Lateral views FINDINGS: The heart size, mediastinum and pulmonary vessels are unremarkable. The lungs are clear. There are no effusions. The bones and soft tissues are within normal limits. IMPRESSION: Normal chest. Interpreted and Authenticated by: Shoaib Garcia 01/04/19
[2019-01-04] MEDS ORDERED: IPRATROPIUM/ALBUTEROL 3 ML AMPUL.NEB NEB PRN ×2 (08:33→10:17)
[2019-01-04] MEDS ORDERED: ASPIRIN 81 MG TAB.CHEW PO SCH (09:00)
[2019-01-04] MEDS ORDERED: BENZONATATE 100 MG CAPSULE PO PRN (09:33)
[2019-01-04] MEDS: DOCUSATE SODIUM 100 MG CAPSULE PO SCH ×2 (09:42→20:14)
[2019-01-04] MEDS: MULTIVIT,THER IRON,CA,FA & MIN 1 TABLET PO SCH (09:42)
[2019-01-04] MEDS: CEFEPIME 2 GM VIAL IV SCH (09:43)
[2019-01-04] MEDS: HEPARIN 5,000 UNIT/ML VIAL SQ SCH ×2 (09:43→20:14)
[2019-01-04] MEDS: LEVOFLOXACIN 750 MG/150 ML BAG IV SCH (09:53)
[2019-01-04] MEDS ORDERED: ONDANSETRON 4 MG/2 ML VIAL IV PRN (10:17)
[2019-01-04] MEDS ORDERED: MAGNESIUM SULFATE 2 GM/50 ML BAG IV PRN (10:17)
[2019-01-04] MEDS ORDERED: POTASSIUM CHLORIDE 20 MEQ PACKET PO PRN (10:17)
[2019-01-04] MEDS ORDERED: ACETAMINOPHEN 650 MG/65 ML BOTTLE IV PRN (10:17)
[2019-01-04] MEDS ORDERED: MELATONIN 3 MG TABLET PO PRN (10:17)
[2019-01-04] MEDS ORDERED: ACETAMINOPHEN 325 MG TABLET PO PRN (10:17)
[2019-01-04] MEDS ORDERED: MAGNESIUM HYDROXIDE 30 ML ORAL.SUSP PO PRN (10:17)
--- NOTE | 2019-01-04 14:35 | Internal Med Progress Note ---
Medical - PN: Subj Patient information: Note initiated : 01/04/19 at 2:32 pm Service Date, if different from initiated Date: [] Patient: Juliann Garza a 88 y/o F admitted on 01/03/19 for Fever. Chief Complaint: [] Interval history: Ms. Garza is a 88 year old F resident of [facility] who presents with 2 w eeks onset of progressive weakness, body ache, fatigue, intermittent fever and progressive dyspnea. Symptoms associated with yellow-green productive sputum. She denies sick contacts. However her functionality has remarkably gone down and has been unable to perform usual ADLs. Initial work-up in the ER was consistent with pneumonia on chest imaging/white count and PSI score over 100, white count 13.2. Patient was tachypneic, tachycardic with blood pressures in 90s. She received crystalloid/antibiotic coverage/cultures. Subsequently patient was started on pressors in light of sepsis induced hypotension and organ dysfunction. Hospitalist service was consulted At the time of evaluation patient is short of breath slightly anxious but was able to answer most the question. She denies chest pain, diarrhea dysuria headache or photophobia. She further denies joint pain or rash. She endorses to loss of appetite. Son Chandrakant present in room. Most of the history was obtained from son. Patient appears fairly confused and did not remember if she had a family member in town however's per son there are 6 brothers and sisters who periodically take care of her. Patient's daughter Linda is the POA who is also a nurse 01/03-patient doing well currently on levo fed/crystalloids and antibiotic coverage. Starting to feel better and more lucid alert and respond to commands. Met son and discussed goals of care/ongoing treatment. Attempted to reach POA daughter Linda but unable to put on phone. T-max 101.3. White count downtrending to 10,000. Wean pressors as indicated. 01/04-patient doing remarkably well. Family at bedside. Discussed treatment plan, labs imaging and overall progress. Anticipate discharge to SNF in the next 48 hours pending clinical improvement. Patient is now off pressors. White count downtrending now at 10.3. Improved hypoxia. Continue nutrition suppo rt/physical therapy. Dementia at baseline - Constitutional Vitals: Vital Signs Temp Pulse Resp BP Pulse Ox 98.3 F 91 H 16 132/69 96 01/04/19 11:56 01/04/19 11:53 01/04/19 11:53 01/04/19 11:53 01/04/19 11:53 Period Temp Pulse Resp BP Sys/Flynn Pulse Ox Last 24 Hr 97.5 F-101.0 F 74-98 15-33 82-155/26-128 93-100 Intake and Output 01/04/19 01/04/19 01/04/19 05:59 13:59 21:59 Intake Total 1000 960 Output Total 1151 400 Balance -151 560 Weight 159 lb 12.8 oz Patient Weight 01/05/19 05:59 Weight 159 lb 12.8 oz Intake & Output: Intake & Output 01/04/19 01/04/19 01/04/19 05:59 13:59 21:59 Intake Total 1000 960 Output Total 1151 400 Balance -151 560 Weight 159 lb 12.8 oz Intake: Nourishment/Supplement quantity 240 (ml) IV 1000 Sodium Chloride 0.9% 1,000 ml @ 1000 50 mls/hr IV .Q20H [facility] Rx#: [id number] Oral 0 720 Output: Void Amount 1150 400 # of times incontinent of urine 1 Other: Meal Lunch Percent of Meal Consumed 100% Feeding Ability Independent Nourishment/Supplement name Ensure Urine Appearance Clear Clear Urine Color Bright Yellow Bright Yellow Stool Size Moderate Stool Color Brown Stool Consistency Soft Formed General appearance: no acute distress Exam: Alert and responding Nonlabored breathing No anxiety Nondistended abdomen No lymphedema Medical - PN: Obj Da - Labs CBC & Chem 7: 01/04/19 04:15 01/04/19 04:15 Labs: Abnormal Lab Results 01/04/19 01/04/19 01/03/19 04:15 04:15 04:10 WBC RBC 3.27 L Hgb 10.4 L Hct 30.3 L Gran % Lymph % (Auto) Gran # Lymph # (Auto) Seg Neutrophils % 79 H Lymphocytes % Chloride 109 H Carbon Dioxide 21 L Glucose Calcium 8.2 L 7.9 L Phosphorus 2.5 L Albumin 2.9 L 2.8 L Globulin Albumin/Globulin Ratio 0.9 L 0.9 L Urine Occult Blood 01/03/19 01/02/19 01/02/19 04:10 20:24 19:48 WBC 13.2 H RBC 3.38 L 3.82 L Hgb 10.4 L 11.5 L Hct 30.7 L 34.3 L Gran % 82.4 H Lymph % (Auto) 9.9 L Gran # 10.8 H Lymph # (Auto) 1.3 L Seg Neutrophils % Lymphocytes % 14 L Chloride Carbon Dioxide Glucose Calcium Phosphorus Albumin Globulin Albumin/Globulin Ratio Urine Occult Blood 0.03 A 01/02/19 19:47 WBC RBC Hgb Hct Gran % Lymph % (Auto) Gran # Lymph # (Auto) Seg Neutrophils % Lymphocytes % Chloride Carbon Dioxide Glucose 123 H Calcium Phosphorus Albumin Globulin 3.9 H Albumin/Globulin Ratio 0.9 L Urine Occult Blood Meds: Medications Acetaminophen (Tylenol) 650 mg PO Q4-6HP PRN; Protocol PRN Reason: Per Pain Protocol/Fever > 101 Albuterol/Ipratropium (Duoneb) 3 ml NEB Q6HP PRN PRN Reason: Wheezing or sob Aspirin (Aspirin) 81 mg PO DAILY [facility] Benzonatate (Tessalon) 100 mg PO TIDP PRN PRN Reason: Cough Cefepime HCl (Maxipime) 2 gm IV Q12H [facility] Docusate Sodium (Colace) 100 mg PO BID [facility] Guaifenesin/Codeine Phosphate (Robitussin Ac) 10 ml PO Q4HP PRN PRN Reason: Cough Heparin Sodium (Porcine) (Heparin) 5,000 unit SQ Q12 [facility] Hydrochlorothiazide (Oretic) 12.5 mg PO DAILY [facility] Levofloxacin (Levaquin) 750 mg in 150 mls @ 100 mls/hr IV Q24H [facility]; Protocol Magnesium Sulfate (Magnesium Sulfate) 2 gm in 50 mls @ 50 mls/hr IV UD PRN PRN Reason: MG = or < 1.7 Sodium Chloride (Sodium Chloride 0.9%) 1,000 mls @ 50 mls/hr IV .Q20H [facility] Stop: 01/05/19 13:16 Acetaminophen (Ofirmev) 650 mg in 65 mls @ 130 mls/hr IV Q6HP PRN; Protocol PRN Reason: Per Pain Protocol/Fever > 101 Iron Carb/Multivit/Card Mounter/Folic Acid (Multivitamin W/Minerals) 1 tab PO DAILY [facility] Lisinopril (Zestril) 10 mg PO DAILY [facility] Magnesium Hydroxide (Milk Of Magnesia) 30 ml PO HSP PRN PRN Reason: Constipation Melatonin (Melatonin 3mg Tablet) 3 mg PO HSP PRN PRN Reason: Insomnia Ondansetron HCl (Zofran) 4 mg IV Q4-6HP PRN; Protocol PRN Reason: Nausea And Vomiting Potassium Chloride (Klor-Con) 40 meq PO DAILYP PRN PRN Reason: K+ < 3.5 Quetiapine Fumarate (Seroquel) 12.5 mg PO QHS [facility] Risperidone (Risperdal) 0.25 mg PO DAILY [facility] Senna/Docusate Sodium (Senna Plus Tablet) 1 tab PO HS [facility] Sertraline HCl (Zoloft) 50 mg PO QDAY [facility] Sodium Chloride (Saline Flush) 10 ml IV Q8 [facility] Medical - PN: A/P - Time Spent With Patient Total time spent is greater than 50% in coordination of care (as documented) at patient's floor/unit and/or counseling patient: 25 - 35 minutes (1) Pneumonia Status: Acute Assessment and plan: * Right lower lobe pneumonia-clinically improved on antibiotic coverage including cefepime/levofloxacin. Cultures negative so far * Septic shock clinically resolved and now off pressors. Stable hemodynamics. Map at goal. Improved endorgan dysfunction. Continue broad-spectrum antibiotics. * Acute encephalopathy secondary to sepsis endorgan dysfunction-clinically resolved and now at baseline * History of dementia with agitation -clinically stable quetiapine/risperidone/sertraline * History of hypertension -may resume antihypertensives in 24 hours pending clinical improvement * Full code * Prophylaxis heparin Plan * Continue antibiotic coverage * Crystalloid/antibiotics * Delirium watch/fall risk * PT OT nutrition support * SNF transfer coordination Current Visit: Yes Medical - PN: Qual - VTE Deep Vein Thrombosis/Pulmonary Embolism Present on Admission: No
[2019-01-04] MEDS: guaiFENesin/CODEINE 10 ML UDC PO PRN ×2 (16:29→20:52)
[2019-01-04] MEDS: SENNOSIDES/DOCUSATE SODIUM 1 TAB TABLET PO SCH (20:14)
[2019-01-04] MEDS: QUEtiapine 25 MG TABLET PO SCH (20:14)
[2019-01-04] MEDS ORDERED: CEFEPIME 2 GM VIAL IV SCH (21:00)
[2019-01-04] MEDS ORDERED: QUEtiapine 25 MG TABLET PO SCH (21:00)
[2019-01-04] MEDS: 0.9 % SODIUM CHLORIDE 1,000 ML IV SCH (22:39)
[2019-01-05] MEDS: guaiFENesin/CODEINE 10 ML UDC PO PRN (02:38)
[2019-01-05] MEDS: 0.9 % SODIUM CHLORIDE 10 ML SYRINGE IV SCH ×3 (05:23→20:42)
[2019-01-05 05:50] LABS: Bilirubin,Direct < 0.2 mg/dL (0.0-0.3); Chloride 108 mmol/L (96-108)
[2019-01-05 05:52] LABS: ALT/SGPT 12 U/l (0-40); AST/SGOT 33 U/l (0-37); Albumin 2.5 gm/dL (3.2-5.2); Albumin/Globulin Ratio 0.7 (1.0-2.3); Alkaline Phosphatase 46 U/L (39-117); Bilirubin,Total 0.5 mg/dL (0.0-1.0); Blood Urea Nitrogen 12 mg/dl (8-23); Calcium 8.5 mg/dl (8.6-10.4); Carbon Dioxide 19 mmol/L (22-30); Globulin 3.7 gm/dL (2.2-3.7); Glomerular Filtration Rate 67; Glucose 99 mg/dL (70-105); Lactate Dehydrogenase 291 U/L (94-250); Phosphorous 2.4 mg/dL (2.7-4.5); Triglycerides 76 mg/dl (<150); Uric Acid 3.3 mg/dL (2.5-8.0)
[2019-01-05 08:00] LABS: Basophils # (Auto) 0.2 K/mcL (0.0-0.3); Basophils % (Auto) 1.6 % (0.0-2.0); Eosinophils # (Auto) 0.2 K/mcL (0.0-0.7); Eosinophils % (Auto) 1.8 % (0.0-7.0); Granulocytes % (Auto) 71.3 % (38.0-78.0); Hematocrit 31.7 % (36.0-48.0); Hemoglobin 10.6 g/dL (12.0-15.0); Lymphocytes # (Auto) 1.5 K/mcL (1.5-4.8); Lymphocytes % (Auto) 15.9 % (15.5-49.0); Mean Cell Volume 91.8 fL (80.0-100.0); Mean Corpuscular HGB Conc 33.6 g/dL (31.0-36.0); Mean Platelet Volume 7.8 fL (7.4-10.4); Monocytes # (Auto) 0.9 K/mcL (0.1-0.9); Monocytes % (Auto) 9.4 % (1.0-12.0); Platelet Count 298 K/mcL (140-440); RBC 3.45 M/mcL (4.00-5.20); WBC 9.6 K/mcL (4.5-11.0)
[2019-01-05] MEDS: 0.9 % SODIUM CHLORIDE 1,000 ML IV SCH (08:31)
[2019-01-05] MEDS ORDERED: risperiDONE 0.25 MG TABLET PO SCH (09:00)
[2019-01-05] MEDS ORDERED: SERTRALINE 50 MG TABLET PO SCH (09:00)
[2019-01-05] MEDS ORDERED: LISINOPRIL/HCTZ 10/12.5MG TABLET PO SCH (09:00)
[2019-01-05] MEDS: HEPARIN 5,000 UNIT/ML VIAL SQ SCH ×2 (10:17→20:41)
[2019-01-05] MEDS: risperiDONE 0.25 MG TABLET PO SCH (10:19)
[2019-01-05] MEDS: ASPIRIN 81 MG TAB.CHEW PO SCH (10:19)
[2019-01-05] MEDS: HYDROCHLOROTHIAZIDE 12.5 MG CAPSULE PO SCH (10:19)
[2019-01-05] MEDS: DOCUSATE SODIUM 100 MG CAPSULE PO SCH ×2 (10:19→20:41)
[2019-01-05] MEDS: MULTIVIT,THER IRON,CA,FA & MIN 1 TABLET PO SCH (10:19)
[2019-01-05] MEDS: LISINOPRIL 10 MG TABLET PO SCH (10:20)
[2019-01-05] MEDS: SERTRALINE 50 MG TABLET PO SCH (10:20)
[2019-01-05] MEDS: cefTRIAXone 2 GM in DEXTROSE 5% IN WATER 50 ML IV SCH (10:26)
[2019-01-05] MEDS: LEVOFLOXACIN 750 MG/150 ML BAG IV SCH (11:21)
--- NOTE | 2019-01-05 17:11 | Internal Med Progress Note ---
Medical - PN: Subj Patient information: Note initiated : 01/05/19 at 5:08 pm Service Date, if different from initiated Date: [] Patient: Juliann Garza a 88 y/o F admitted on 01/03/19 for Fever. Chief Complaint: [] Interval history: Ms. Garza is a 88 year old F resident of [facility] who presents with 2 w eeks onset of progressive weakness, body ache, fatigue, intermittent fever and progressive dyspnea. Symptoms associated with yellow-green productive sputum. She denies sick contacts. However her functionality has remarkably gone down and has been unable to perform usual ADLs. Initial work-up in the ER was consistent with pneumonia on chest imaging/white count and PSI score over 100, white count 13.2. Patient was tachypneic, tachycardic with blood pressures in 90s. She received crystalloid/antibiotic coverage/cultures. Subsequently patient was started on pressors in light of sepsis induced hypotension and organ dysfunction. Hospitalist service was consulted At the time of evaluation patient is short of breath slightly anxious but was able to answer most the question. She denies chest pain, diarrhea dysuria headache or photophobia. She further denies joint pain or rash. She endorses to loss of appetite. Son Chandrakant present in room. Most of the history was obtained from son. Patient appears fairly confused and did not remember if she had a family member in town however's per son there are 6 brothers and sisters who periodically take care of her. Patient's daughter Linda is the POA who is also a nurse 01/03-patient doing well currently on levo fed/crystalloids and antibiotic coverage. Starting to feel better and more lucid alert and respond to commands. Met son and discussed goals of care/ongoing treatment. Attempted to reach POA daughter Linda but unable to put on phone. T-max 101.3. White count downtrending to 10,000. Wean pressors as indicated. 01/04-patient doing remarkably well. Family at bedside. Discussed treatment plan, labs imaging and overall progress. Anticipate discharge to SNF in the next 48 hours pending clinical improvement. Patient is now off pressors. White count downtrending now at 10.3. Improved hypoxia. Continue nutrition suppo rt/physical therapy. Dementia at baseline 01/05-patient doing well. [facility] White count 9.6. Continue Levaquin for pneumonia. Continue PT OT/nutrition support. No fever chills or concerns per nursing staff. - Constitutional Vitals: Vital Signs Temp Pulse Resp BP Pulse Ox 98.3 F 75 20 103/62 94 01/05/19 15:48 01/05/19 08:00 01/05/19 15:48 01/05/19 15:48 01/05/19 15:48 Period Temp Pulse Resp BP Sys/Flynn Pulse Ox Last 24 Hr 97.6 F-98.3 F 71-91 16-20 103-139/62-76 92-98 Intake and Output 01/05/19 01/05/19 01/05/19 05:59 13:59 21:59 Intake Total 1120 900 Output Total 901 301 Balance 219 599 Intake & Output: Intake & Output 01/05/19 01/05/19 01/05/19 05:59 13:59 21:59 Intake Total 1120 900 Output Total 901 301 Balance 219 599 Intake: IV 1000 200 Sodium Chloride 0.9% 1,000 ml @ 1000 50 mls/hr IV .Q20H [facility] Rx#: [id number] Rocephin 2 gm In Dextrose 5% in 50 Water 50 ml @ 100 mls/hr IV Q24H [facility] Rx#:[id number] Oral 120 700 Output: Void Amount 900 300 # of times incontinent of urine 1 1 Other: Percent of Meal Consumed 75% Feeding Ability Assist with Tray Set Up Urine Appearance Clear Clear Urine Color Bright Yellow Dark Yellow Urine Odor Strong Normal General appearance: no acute distress Exam: Respond to commands Nonlabored breathing No anxiety Intermittently confused but cooperative Medical - PN: Obj Da - Labs CBC & Chem 7: 01/05/19 07:14 01/05/19 04:30 Labs: Abnormal Lab Results 01/05/19 01/05/19 01/04/19 07:14 04:30 04:15 WBC RBC 3.45 L Hgb 10.6 L Hct 31.7 L Gran % Lymph % (Auto) Gran # Lymph # (Auto) Seg Neutrophils % Lymphocytes % Chloride 109 H Carbon Dioxide 19 L 21 L Glucose Calcium 8.5 L 8.2 L Phosphorus 2.4 L 2.5 L Lactate Dehydrogenase 291 H Albumin 2.5 L 2.9 L Globulin Albumin/Globulin Ratio 0.7 L 0.9 L Urine Occult Blood 01/04/19 01/03/19 01/03/19 04:15 04:10 04:10 WBC RBC 3.27 L 3.38 L Hgb 10.4 L 10.4 L Hct 30.3 L 30.7 L Gran % Lymph % (Auto) Gran # Lymph # (Auto) Seg Neutrophils % 79 H Lymphocytes % 14 L Chloride Carbon Dioxide Glucose Calcium 7.9 L Phosphorus Lactate Dehydrogenase Albumin 2.8 L Globulin Albumin/Globulin Ratio 0.9 L Urine Occult Blood 01/02/19 01/02/19 01/02/19 20:24 19:48 19:47 WBC 13.2 H RBC 3.82 L Hgb 11.5 L Hct 34.3 L Gran % 82.4 H Lymph % (Auto) 9.9 L Gran # 10.8 H Lymph # (Auto) 1.3 L Seg Neutrophils % Lymphocytes % Chloride Carbon Dioxide Glucose 123 H Calcium Phosphorus Lactate Dehydrogenase Albumin Globulin 3.9 H Albumin/Globulin Ratio 0.9 L Urine Occult Blood 0.03 A Meds: Medications Acetaminophen (Tylenol) 650 mg PO Q4-6HP PRN; Protocol PRN Reason: Per Pain Protocol/Fever > 101 Albuterol/Ipratropium (Duoneb) 3 ml NEB Q6HP PRN PRN Reason: Wheezing or sob Aspirin (Aspirin) 81 mg PO DAILY [facility] Last Admin: 01/05/19 10:19 Dose: 81 mg Documented by: Benzonatate (Tessalon) 100 mg PO TIDP PRN PRN Reason: Cough Docusate Sodium (Colace) 100 mg PO BID [facility] Last Admin: 01/05/19 10:19 Dose: 100 mg Documented by: Guaifenesin/Codeine Phosphate (Robitussin Ac) 10 ml PO Q4HP PRN PRN Reason: Cough Last Admin: 01/05/19 02:38 Dose: 10 ml Documented by: Heparin Sodium (Porcine) (Heparin) 5,000 unit SQ Q12 [facility] Last Admin: 01/05/19 10:17 Dose: 5,000 unit Documented by: Hydrochlorothiazide (Oretic) 12.5 mg PO DAILY [facility] Last Admin: 01/05/19 10:19 Dose: 12.5 mg Documented by: Levofloxacin (Levaquin) 750 mg in 150 mls @ 100 mls/hr IV Q24H [facility]; Protocol Last Infusion: 01/05/19 17:06 Dose: Infused Documented by: Magnesium Sulfate (Magnesium Sulfate) 2 gm in 50 mls @ 50 mls/hr IV UD PRN PRN Reason: MG = or < 1.7 Acetaminophen (Ofirmev) 650 mg in 65 mls @ 130 mls/hr IV Q6HP PRN; Protocol PRN Reason: Per Pain Protocol/Fever > 101 Ceftriaxone Sodium 2 gm/ (Dextrose) 50 mls @ 100 mls/hr IV Q24H [facility] Last Infusion: 01/05/19 17:06 Dose: Infused Documented by: Iron Carb/Multivit/Naturita/Folic Acid (Multivitamin W/Minerals) 1 tab PO DAILY [facility] Last Admin: 01/05/19 10:19 Dose: 1 tab Documented by: Lisinopril (Zestril) 10 mg PO DAILY [facility] Last Admin: 01/05/19 10:20 Dose: 10 mg Documented by: Magnesium Hydroxide (Milk Of Magnesia) 30 ml PO HSP PRN PRN Reason: Constipation Melatonin (Melatonin 3mg Tablet) 3 mg PO HSP PRN PRN Reason: Insomnia Ondansetron HCl (Zofran) 4 mg IV Q4-6HP PRN; Protocol PRN Reason: Nausea And Vomiting Potassium Chloride (Klor-Con) 40 meq PO DAILYP PRN PRN Reason: K+ < 3.5 Quetiapine Fumarate (Seroquel) 12.5 mg PO QHS [facility] Last Admin: 01/04/19 20:14 Dose: 12.5 mg Documented by: Risperidone (Risperdal) 0.25 mg PO DAILY [facility] Last Admin: 01/05/19 10:19 Dose: 0.25 mg Documented by: Senna/Docusate Sodium (Senna Plus Tablet) 1 tab PO HS [facility] Last Admin: 01/04/19 20:14 Dose: 1 tab Documented by: Sertraline HCl (Zoloft) 50 mg PO QDAY [facility] Last Admin: 01/05/19 10:20 Dose: 50 mg Documented by: Sodium Chloride (Saline Flush) 10 ml IV Q8 [facility] Last Admin: 01/05/19 15:27 Dose: Not Given Documented by: Medical - PN: A/P - Time Spent With Patient Total time spent is greater than 50% in coordination of care (as documented) at patient's floor/unit and/or counseling patient: 15 - 24 minutes (1) Pneumonia Status: Acute Assessment and plan: * Right lower lobe pneumonia-clinically improved on antibiotic coverage including cefepime/levofloxacin. Cultures negative so far * Septic shock clinically resolved and now off pressors. Stable hemodynamics. Map at goal. Improved endorgan dysfunction. Continue broad-spectrum antibiotics. * Acute encephalopathy secondary to sepsis -resolved now at baseline * History of dementia with agitation -clinically stable on quetiapine/risperidone/sertraline * History of hypertension -continue home dose lisinopril/HCTZ * Full code * Prophylaxis heparin Plan * Continue Levaquin * Delirium watch/fall risk * PT OT nutrition support * SNF transfer 01/06 Current Visit: Yes Medical - PN: Qual - VTE Deep Vein Thrombosis/Pulmonary Embolism Present on Admission: No
[2019-01-05] MEDS: SENNOSIDES/DOCUSATE SODIUM 1 TAB TABLET PO SCH (20:41)
[2019-01-05] MEDS: QUEtiapine 25 MG TABLET PO SCH (20:41)
[2019-01-06] MEDS: 0.9 % SODIUM CHLORIDE 10 ML SYRINGE IV SCH (05:52)
[2019-01-06 06:17] LABS: Hematocrit 31.5 % (36.0-48.0); Hemoglobin 10.6 g/dL (12.0-15.0); Mean Cell Volume 93.6 fL (80.0-100.0); Mean Corpuscular HGB Conc 33.8 g/dL (31.0-36.0); Mean Platelet Volume 7.9 fL (7.4-10.4); Platelet Count 312 K/mcL (140-440); RBC 3.36 M/mcL (4.00-5.20); WBC 7.3 K/mcL (4.5-11.0)
[2019-01-06 06:55] LABS: ALT/SGPT 16 U/l (0-40); AST/SGOT 35 U/l (0-37); Albumin 2.9 gm/dL (3.2-5.2); Albumin/Globulin Ratio 0.8 (1.0-2.3); Alkaline Phosphatase 55 U/L (39-117); Bilirubin,Direct < 0.2 mg/dL (0.0-0.3); Bilirubin,Total 0.3 mg/dL (0.0-1.0); Blood Urea Nitrogen 15 mg/dl (8-23); Calcium 9.1 mg/dl (8.6-10.4); Carbon Dioxide 22 mmol/L (22-30); Chloride 104 mmol/L (96-108); Globulin 3.6 gm/dL (2.2-3.7); Glomerular Filtration Rate 51; Glucose 97 mg/dL (70-105); Lactate Dehydrogenase 261 U/L (94-250); Triglycerides 80 mg/dl (<150); Uric Acid 3.8 mg/dL (2.5-8.0)
[2019-01-06 06:57] LABS: Phosphorous 3.1 mg/dL (2.7-4.5)
[2019-01-06] MEDS: cefTRIAXone 2 GM in DEXTROSE 5% IN WATER 50 ML IV SCH (07:34)
[2019-01-06 07:52] LABS: Eosinophils % (Manual) 3 % (0-7); Lymphocytes % 34 % (15-49); Monocytes % (Manual) 8 % (1-12); Platelet Estimate NORMAL (NORMAL); RBC Morphology NORMAL (NORMAL); Segmented Neutrophils % 55 % (38-78)
[2019-01-06] MEDS: LEVOFLOXACIN 750 MG/150 ML BAG IV SCH (08:26)
[2019-01-06] MEDS: HEPARIN 5,000 UNIT/ML VIAL SQ SCH (08:39)
[2019-01-06] MEDS: risperiDONE 0.25 MG TABLET PO SCH (08:39)
[2019-01-06] MEDS: SERTRALINE 50 MG TABLET PO SCH (08:39)
[2019-01-06] MEDS: LISINOPRIL 10 MG TABLET PO SCH (08:39)
[2019-01-06] MEDS: MULTIVIT,THER IRON,CA,FA & MIN 1 TABLET PO SCH (08:39)
[2019-01-06] MEDS: ASPIRIN 81 MG TAB.CHEW PO SCH (08:39)
[2019-01-06] MEDS: HYDROCHLOROTHIAZIDE 12.5 MG CAPSULE PO SCH (08:39)
[2019-01-06] MEDS: DOCUSATE SODIUM 100 MG CAPSULE PO SCH (08:40)
--- NOTE | 2019-01-06 08:57 | Discharge Summary ---
Medical - DS: Prov Patient information: Note initiated : 01/06/19 at 8:55 am Service Date, if different from initiated Date: [] Patient: Juliann Garza 88 y/o F admitted on 01/03/19 for Fever. Chief Complaint: [] Date of admission: 01/03/19 00:58 Discharge date: 01/06/19 Primary care physician: LANDRY Giles Consults: 01/03/19 07:04 Consult to Physician [CONS] Routine Comment: Consulting Provider: Rubén Flores Reason For Exam: Physician to Consult Medical - DS: Meds - Discharge Medications Prescriptions: Levofloxacin [Levaquin] 750 mg PO DAILY #3 tab Transmission Status: Pending to [facility] #[id number] Active and Home Medications: Home Medications acetaminophen 500 mg capsule 1,000 mg PO Q6HP PRN 10/06/18 [History Confirmed 01/04/19 Last Taken Unknown] aspirin 81 mg tablet,delayed release 81 mg PO QDAY 10/06/18 [History Confirmed 01/04/19 Last Taken Unknown] cholecalciferol (vitamin D3) 2,000 unit capsule 2,000 unit PO QDAY 10/06/18 [History Confirmed 01/04/19 Last Taken Unknown] lisinopril 10 mg-hydrochlorothiazide 12.5 mg tablet 1 tab PO QAM tab 10/06/18 [History Confirmed 01/04/19 Last Taken Unknown] quetiapine 25 mg tablet 12.5 mg PO QHS tab 10/06/18 [History Confirmed 01/04/19 Last Taken Unknown] risperidone 0.25 mg tablet 0.25 mg PO DAILY 10/06/18 [History Confirmed 01/04/19 Last Taken Unknown] sertraline 50 mg tablet 50 mg PO QDAY 10/06/18 [History Confirmed 01/04/19 Last Taken Unknown] vitamin E 200 unit capsule 400 unit PO QDAY 10/06/18 [History Confirmed 01/04/19 Last Taken Unknown] Capsaicin [Zostrix] 1 dose TOPICAL BIDP PRN 01/04/19 [History Confirmed 01/04/19 Last Taken Unknown] Levofloxacin [Levaquin] 750 mg PO DAILY #3 tab 01/06/19 [Rx Last Taken Unknown] Medical - DS: Hosp Hospital Course: Discharge diagnosis * Right lower lobe pneumonia-clinically improved on antibiotic coverage including Rocephin/levofloxacin. De-escalate to Levaquin for additional 3 days * Septic shock clinically resolved and now off pressors. Stable hemodynamics. Map at goal. Improved endorgan dysfunction. Continue additional 3 days Levaq uin * Acute encephalopathy secondary to sepsis -resolved now at baseline * History of dementia with agitation -clinically stable on quetiapine/risperidone/sertraline * History of hypertension -continue home dose lisinopril/HCTZ Brief hospital course Ms. Garza is a 88 year old F resident of [facility] who presents with 2 weeks onset of progressive weakness, body ache, fatigue, intermittent fever and progressive dyspnea. Symptoms associated with yellow-green productive sputum. She denies sick contacts. However her functionality has remarkably gone down and has been unable to perform usual ADLs. Initial work-up in the ER was consistent with pneumonia on chest imaging/white count and PSI score over 100, white count 13.2. Patient was tachypneic, tachycardic with blood pressures in 90s. She received crystalloid/antibiotic coverage/cultures. Subsequently patient was started on pressors in light of sepsis induced hypotension and organ dysfunction. Hospitalist service was consulted At the time of evaluation patient is short of breath slightly anxious but was able to answer most the question. She denies chest pain, diarrhea dysuria headache or photophobia. She further denies joint pain or rash. She endorses to loss of appetite. Son Chandrakant present in room. Most of the history was obtained from son. Patient appears fairly confused and did not remember if she had a family member in town however's per son there are 6 brothers and sisters who periodically take care of her. Patient's daughter Linda is the POA who is also a nurse 01/03-patient doing well currently on levo fed/crystalloids and antibiotic coverage. Starting to feel better and more lucid alert and respond to commands. Met son and discussed goals of care/ongoing treatment. Attempted to reach POA daughter Linda but unable to put on phone. T-max 101.3. White count downtrending to 10,000. Wean pressors as indicated. 01/04-patient doing remarkably well. Family at bedside. Discussed treatment plan, labs imaging and overall progress. Anticipate discharge to SNF in the next 48 hours pending clinical improvement. Patient is now off pressors. White count downtrending now at 10.3. Improved hypoxia. Continue nutrition support/physical therapy. Dementia at baseline 01/05-patient doing well. Anticipate discharge to [facility] 01/06 a.m. White count 9.6. Continue Levaquin for pneumonia. Continue PT OT/nutrition support. No fever chills or concerns per nursing staff. 01/06-patient doing well. No overnight events. Mentation baseline. Now on room air. No shortness of breath. Tolerating diet and ambulation and physical therapy. Continue post auscultation rehab at [facility]. Discharging with recommendations as below along with 3 days antibiotics Discharge diagnosis: . - Time Spent with Patient Total time spent providing and/or coordinating discharge services: Greater than 30 minutes Medical - DS: Exam - Constitutional Vitals: Vital Signs Temp Pulse Pulse Resp BP BP Pulse Ox 01/06/19 07:36 98.1 F 16 125/72 93 01/06/19 03:48 98 F 66 18 127/71 94 01/05/19 23:19 97.8 F 73 18 128/82 96 01/05/19 19:28 98.8 F 83 16 114/60 90 01/05/19 16:00 98.3 F 82 20 103/62 94 01/05/19 15:48 98.3 F 20 103/62 94 01/05/19 12:00 98.2 F 68 20 122/73 95 01/05/19 11:51 98.2 F 20 122/73 95 Intake and Output 01/05/19 01/06/19 01/06/19 21:59 05:59 13:59 Intake Total 1020 400 50 Output Total 1041 600 250 Balance -21 -200 -200 Intake: IV 200 50 Rocephin 2 gm In Dextrose 5% in 50 50 Water 50 ml @ 100 mls/hr IV Q24H [facility] Rx#:[id number] Oral 820 400 Output: Urine Catheter Amount 140 Void Amount 900 600 250 # of times incontinent of urine 1 Other: Meal Dinner Percent of Meal Consumed 100% Feeding Ability Assist with Tray Set Up Urine Appearance Clear Clear Urine Color Dark Yellow Bright Yellow Urine Odor Normal Weight 158 lb 8 oz Medical - DS: Data Labs on day of discharge: Labs from last 24 hours 01/06/19 01/06/19 04:50 04:50 WBC 7.3 RBC 3.36 L Hgb 10.6 L Hct 31.5 L MCV 93.6 MCH 31.6 MCHC 33.8 RDW 13.0 Plt Count 312 MPV 7.9 Total Counted 100 Seg Neutrophils % 55 Band Neutrophils % Not Reportable Lymphocytes % 34 Monocytes % (Manual) 8 Eosinophils % (Manual) 3 Platelet Estimate Normal RBC Morphology Normal Sodium 138 Potassium 4.4 Chloride 104 Carbon Dioxide 22 Anion Gap 12.0 BUN 15 Creatinine 1.0 GFR Calculation 51 Glucose 97 Uric Acid 3.8 Calcium 9.1 Phosphorus 3.1 Magnesium 2.1 Total Bilirubin 0.3 Direct Bilirubin < 0.2 GGT 27 AST 35 ALT 16 Alkaline Phosphatase 55 Lactate Dehydrogenase 261 H Total Protein 6.5 Albumin 2.9 L Globulin 3.6 Albumin/Globulin Ratio 0.8 L Triglycerides 80 Preliminary micro results at discharge 01/02/19 20:00 Blood Culture - Preliminary Blood 01/02/19 19:45 Blood Culture - Preliminary Blood Medical - DS: A/P - Patient/Caregiver Discharge Instructions Activity: as per physical therapy, increase activity as tolerated Diet: Regular Diet Additional Instructions: Delirium watch Continue oral Levaquin for additional 3 days Follow primary care physician 5 to 7 days Diet and nutrition support Prescriptions: Levofloxacin [Levaquin] 750 mg PO DAILY #3 tab Transmission Status: Pending to [facility] #[id number] - Problem Maintenance (1) Pneumonia Status: Acute - Follow up Plan Follow up with: Abigail Kincaid ARNP [Primary Care Provider] - Disposition: Xfer SNF Care Plan Goals: This discharge packet is provided to you to help keep you informed about your care. We want to ensure you get everything you need when you go home. You will also be receiving a call from us in a few days to follow up with you and see how you are doing since your discharge. This gives us a chance to listen to any concerns you maybe experiencing since you were discharged or any additional needs you may have, as well as providing us feedback on your care experience. We strive to always provide excellent care and thank you for your feedback and for choosing [facility]. Prognosis: Fair Rehab Potential: Fair I certify that the patient requires SNF services: Yes Overall status at discharge: patient is progressing back to baseline Medical - DS: Qual - VTE Deep Vein Thrombosis/Pulmonary Embolism Present on Admission: No
== END 2019-01-06 10:09 | DRG 871 ==
LOC: ED 19:27 → ICU 01-03 00:58 → MEDSUR 01-04 17:39
PROVIDERS: ADMIT Internal Medicine; ATTEND Internal Medicine